=== PATIENT | female | born 1990 | race Caucasian/White ===

== ENCOUNTER 2018-12-02 16:57 | Inpatient (IN) | payer MEDICAID ==
[2018-12-02] MEDS: LACTATED RINGER'S 1,000 ML IV (18:28)
[2018-12-02] MEDS: BUTORPHANOL 2 MG INJ IV (18:29)
[2018-12-02] MEDS ORDERED: MISOPROSTOL 200 MCG TAB PR ×2 (18:30→19:30)
[2018-12-02] MEDS ORDERED: LIDOCAINE 1% (MPF) 30 ML INJ INJ (18:30)
[2018-12-02] MEDS ORDERED: METHYLERGONOVINE 0.2 MG INJ IM ×2 (18:30→19:30)
[2018-12-02] MEDS ORDERED: CARBOPROST 250 MCG INJ IM ×2 (18:30→19:30)
[2018-12-02] MEDS ORDERED: OXYTOCIN 30 UNITS/LR 500 ML IV ×2 (18:30→19:30)
[2018-12-02] MEDS: AMPICILLIN 2 GM/NS (PMX) 100 ML IV (18:30)
[2018-12-02] MEDS: OXYTOCIN 30 UNITS/LR 500 ML IV ×3 (18:54→19:25)
[2018-12-02 19:09] LABS: ADD MAN DIFF? NO
[2018-12-02 19:12] LABS: WHITE BLOOD COUNT 11.4 10^3/ul (4.8-10.8)
[2018-12-02 19:12] LABS: BASOPHILS % 0.2 % (0.0-2.0); EOSINOPHILS # 0.1 10^3/ul (0.0-0.5); EOSINOPHILS % 0.6 % (0.0-7.0); HEMATOCRIT 38.3 % (37.0-47.0); HEMOGLOBIN 11.9 g/dl (12.0-16.0); LYMPHOCYTES # 2.1 10^3/ul (0.8-2.9); LYMPHOCYTES % 18.7 % (15.0-51.0); MEAN CORPUSCULAR HEMOGLOBIN 25.9 pg (29.0-33.0); MEAN CORPUSCULAR HGB CONC 31.1 g/dl (32.0-37.0); MEAN CORPUSCULAR VOLUME 83.4 fl (82.0-101.0); MEAN PLATELET VOLUME 10.2 fl (7.4-10.4); MONOCYTE # 0.5 10^3/ul (0.3-0.9); MONOCYTES % 4.7 % (0.0-11.0); NEUTROPHIL # 8.6 10^3/ul (1.6-7.5); NEUTROPHILS % 75.3 % (39.0-77.0); PLATELET COUNT 235 10^3/UL (140-415); RED BLOOD COUNT 4.59 10^6/ul (4.20-5.40); RED CELL DISTRIBUTION WIDTH 14.6 % (11.5-14.5)
[2018-12-02] MEDS: LACTATED RINGER'S 1,000 ML IV* (19:25)
[2018-12-02] MEDS ORDERED: ACETAMINOPHEN 325 MG TAB PO ×2 (19:30)
[2018-12-02] MEDS ORDERED: ONDANSETRON 4 MG INJ IV (19:30)
[2018-12-02] MEDS ORDERED: MAGNESIUM HYDROXIDE 30ML CUP PO (19:30)
[2018-12-02] MEDS ORDERED: DIBUCAINE 1% 30 GM OINT TOP (19:30)
[2018-12-02] MEDS ORDERED: SENNA/DOCUSATE NA (8.6MG/50MG) TAB PO (19:30)
[2018-12-02 19:40] LABS: INR 0.95; PROTIME 12.8 Sec (11.9-14.9)
[2018-12-02 19:41] LABS: PARTIAL THROMBOPLASTIN TIME 28.8 Sec (23.0-35.0)
[2018-12-02] MEDS: AMPICILLIN 1 GM/NS (PMX) 50 ML IV (21:30)
[2018-12-02] MEDS: IBUPROFEN 600 MG TAB PO (22:07)
[2018-12-02] MEDS: LANOLIN HPA 1 PKT TOP (22:49)
[2018-12-02] MEDS: WITCH HAZEL/GLYCERIN PAD PR (22:50)
[2018-12-02] MEDS: BENZOCAINE 20% 56 ML SPRAY TOP (22:50)
[2018-12-03] MEDS: AMPICILLIN 1 GM/NS (PMX) 50 ML IV ×3 (01:30→06:46)
[2018-12-03] MEDS: LACTATED RINGER'S 1,000 ML IV* ×2 (03:06→11:25)
[2018-12-03] MEDS: IBUPROFEN 600 MG TAB PO ×3 (05:49→22:38)
[2018-12-03 08:35] LABS: ADD MAN DIFF? NO
[2018-12-03 08:45] LABS: WHITE BLOOD COUNT 13.4 10^3/ul (4.8-10.8)
[2018-12-03 08:45] LABS: BASOPHILS % 0.2 % (0.0-2.0); EOSINOPHILS # 0.1 10^3/ul (0.0-0.5); EOSINOPHILS % 0.7 % (0.0-7.0); HEMATOCRIT 32.4 % (37.0-47.0); HEMOGLOBIN 10.3 g/dl (12.0-16.0); LYMPHOCYTES # 2.7 10^3/ul (0.8-2.9); MEAN CORPUSCULAR HEMOGLOBIN 26.8 pg (29.0-33.0); MEAN CORPUSCULAR HGB CONC 31.8 g/dl (32.0-37.0); MEAN CORPUSCULAR VOLUME 84.2 fl (82.0-101.0); MEAN PLATELET VOLUME 9.8 fl (7.4-10.4); MONOCYTE # 0.7 10^3/ul (0.3-0.9); MONOCYTES % 5.1 % (0.0-11.0); NEUTROPHIL # 9.9 10^3/ul (1.6-7.5); NEUTROPHILS % 73.7 % (39.0-77.0); PLATELET COUNT 199 10^3/UL (140-415); RED BLOOD COUNT 3.85 10^6/ul (4.20-5.40); RED CELL DISTRIBUTION WIDTH 14.3 % (11.5-14.5)
[2018-12-03 15:11] LABS: RAPID PLASMA REAGIN NONREACTIVE (NR)
[2018-12-04] MEDS: IBUPROFEN 600 MG TAB PO (08:01)
== END 2018-12-04 13:05 | disposition home or self-care (01) | DRG 807 ==
LOC: OBT 16:57 → L-D 16:58 → OBT 17:00 → L-D 17:00 → PP1 21:12
PROVIDERS: Obstetrics & Gynecology
PROC: 10E0XZZ Delivery of Products of Conception, External Approach (ICD-10-PCS; principal; 2018-12-02)
DX: O69.81X0 Labor and delivery complicated by cord around neck, without compression, not applicable or unspecified (principal); Z37.0 Single live birth; Z3A.39 39 weeks gestation of pregnancy
CPT/HCPCS: 85025; 85610; 85730; 86592; 86850; 86900; 86901; 99464